=== PATIENT | female | born 1985 | race Caucasian/White ===

== ENCOUNTER 2021-06-27 00:39 | Emergency (ER) | payer OTHER ==
[~2021-06-27] VITALS: Ht 149.9 cm; Wt 52.3 kg
[~2021-06-27 00:39] MED LIST: BCP PO; CLEOCIN HCL300 MG PO; IRON325 MG PO; MOTRIN 600600 MG/TAB PO; NORCO 325 MG-51 TAB PO; PERCOCET 325 MG1 TA2 PO; PHENERGAN 25 TA25 MG PO; PRENATABS RX1 TAB PO
[2021-06-27 02:05] VITALS: BP 132/88; PULSE 81; TEMP 98.3
== END 2021-06-27 02:05 ==
LOC: COL.ER 00:39
DX: S80.02XA Contusion of left knee, initial encounter (principal); S80.01XA Contusion of right knee, initial encounter; V49.50XA Passenger injured in collision with unspecified motor vehicles in traffic accident, initial encounter
CPT/HCPCS: J2405